=== PATIENT | male | born 2000 | race African-American/Black ===

== ENCOUNTER 2021-03-01 12:28 | Outpatient (CLI) | payer OTHER | END 2021-03-01 12:29 | disposition EMS.NT | LOC: EMS 12:28 | DX: R07.9 Chest pain, unspecified (principal); R05.9 Cough, unspecified ==

== ENCOUNTER 2021-03-01 13:22 | Emergency (ER) | payer OTHER ==
--- NOTE | 2021-03-01 13:56 | ED Physician Documentation ---
History of Present Illness - Stated complaint Stated Complaint: DIZZINESS - Chief complaint Chief Complaint: General - Additonal information Additional information: 20-year-old male presents emergency department for evaluation of generalized fatigue weakness dizziness and productive cough. Symptoms began on 20 February. His mom had tested positive for COVID-19. And he had visited her. He did have a PCR test on the which was negative. He is fully vaccinated though not boosted for COVID-19. Denies any pertinent past medical history. No tobacco or vape use denies alcohol. Review of Systems Constitutional: reports: Chills, Myalgias, Fatigue. denies: Fever Eyes: reports: Reviewed and negative Ears: reports: Reviewed and negative Nose: reports: Rhinorrhea / runny nose, Congestion Throat: reports: Dental pain / toothache Cardiac: denies: Chest pain / pressure, Palpitations, Pedal edema Respiratory: reports: Cough. denies: Dyspnea, Hemoptysis, Wheezing GI: reports: Diarrhea. denies: Abdominal Pain : reports: Reviewed and negative Skin: reports: Reviewed and negative Musculoskeletal: reports: Reviewed and negative Neurologic: reports: Generalized weakness PD PAST MEDICAL HISTORY - Present Medications Home Medications: Ambulatory Orders Medication Instructions Recorded Confirmed Albuterol Sulf [Ventolin Hfa 1 - 2 puffs INH Q4HR PRN #1 inhaler 03/01/21 Inhaler] Benzonatate [Tessalon] 200 mg PO TID PRN #20 cap 03/01/21 - Allergies Allergies/Adverse Reactions: Allergies Allergy/AdvReac Type Severity Reaction Status Date / Time No Known Drug Allergies Allergy Verified 03/01/21 13:42 PD ED PE NORMAL - General General: Alert and oriented X 3, No acute distress - HEENT HEENT: PERRL - Neck Neck: Supple, no meningeal sign, No adenopathy - Cardiac Cardiac: RRR, No murmur, No gallop - Respiratory Respiratory: No respiratory distress, Clear bilaterally - Abdomen Abdomen: Normal bowel sounds, Soft, Non tender - Back Back: No CVA TTP, No spinal TTP - Derm Derm: Normal color, Warm and dry, No rash - Extremities Extremities: No deformity, No tenderness to palpate, Normal ROM s pain - Neuro Neuro: Alert and oriented X 3, customer support associate 2-12 intact, No motor deficit Eye Opening: Spontaneous Motor: Obeys Commands Verbal: Oriented GCS Score: 15 Results - Vitals Vitals: Vital Signs - 24 hr 03/01/21 13:39 Temperature 37.2 C Heart Rate 74 Respiratory 23 Rate Blood Pressure 139/94 H O2 Saturation 100 Oxygen O2 Source Room air - Rads (name of study) CXR Radiology: Final report received (no acute cardiopulmonary process) PD MEDICAL DECISION MAKING - ED course Complexity details: reviewed results, re-evaluated patient, considered differential, d/w patient ED course: 20-year-old male presents emergency department for evaluation of just over 1 week productive cough weakness fatigue myalgias and chills. He also endorses some diarrhea. His mom was Covid positive during the holidays. He is vaccinated and tested negative on 21 February. His clinical exam is entirely unremarkable. Normal vitals without hypoxia. Unremarkable cardiopulmonary auscultation. No hypoxia. No abdominal tenderness elicited. Screening chest x-ray was without acute focal opacity. I suspect that he likely has a viral URI. We discussed routine care that would include hydration rest and as needed Motrin and Tylenol. I will prescribe a limited amount of Tessalon Perles as well as albuterol to machine adjuster helper in the cough. A Covid screen is pending on this gentleman and he is advised to remain in quarantine until the results are known. Departure - Departure Disposition: 01 Home, Self Care Clinical Impression: Cough, Encounter for screening for COVID-19 Upper respiratory infection Qualifiers: URI type: unspecified viral URI Qualified Code(s): J06.9 - Acute upper respiratory infection, unspecified Condition: Stable Record reviewed to determine appropriate education?: Yes Prescriptions: Albuterol Sulf [Ventolin Hfa Inhaler] 1 - 2 puffs INH Q4HR PRN #1 inhaler PRN Reason: Shortness Of Air/Wheezing Benzonatate [Tessalon] 200 mg PO TID PRN #20 cap PRN Reason: Cough Comments: Armond you were seen today in the emergency department for cough, congestion, fatigue and weakness as well as diarrhea after being exposed to COVID-19. A COVID-19 test is pending for you. You are advised to remain in quarantine until the test results are known which may take 3 to 4 days. Your chest x-ray is unremarkable. You do not have pneumonia. I am sending a prescription for some albuterol as [place] help reduce your cough. It is important that you stay well-hydrated. Drink lots of water. This will improve your weakness as well as your dizziness. We will notify you if the Covid test is positive. If at any point you feel that your symptoms are worsening, you have fainting episodes, fever higher than 103 or severe shortness of air then please return immediately to the ER for a second evaluation.
--- NOTE | 2021-03-01 14:05 | XRAY Report ---
PROCEDURE: Chest 1 View X-Ray INDICATIONS: chest pain TECHNIQUE: One view of the chest was acquired. COMPARISON: None FINDINGS: Surgical changes and devices: None. Lungs and pleura: No pleural effusions or pneumothorax. Lungs are clear. Mediastinum: Mediastinal contours appear normal. Heart size is normal. Bones and chest wall: No suspicious bony lesions. Overlying soft tissues appear unremarkable. IMPRESSION: No acute process. Reviewed by: Tomas Graves MD on 03/01/2021 2:04 PM PST Approved by: Tomas Graves MD on 03/01/2021 2:04 PM PST Station ID: [id number]
[2021-03-01 14:17] VITALS: BP 137/90
== END 2021-03-01 15:12 | disposition home or self-care (01) ==
LOC: ED 13:22
DX: U07.1 COVID-19 (principal)
CPT/HCPCS: 99283; 99284

== ENCOUNTER 2022-09-17 11:08 | Emergency (ER) | payer OTHER ==
[2022-09-17 11:55] LABS: BASOPHILS % (AUTO) 0.3 %; EOSINOPHILS # (AUTO) 0.1 10^3/uL (0.0-0.7); EOSINOPHILS % (AUTO) 0.8 %; HCT - HEMATOCRIT 47.8 % (42.0-52.0); HGB - HEMOGLOBIN 15.4 g/dL (14.0-18.0); LYMPHOCYTES # (AUTO) 1.2 10^3/uL (1.5-3.5); LYMPHOCYTES % (AUTO) 15.7 %; MEAN CORPUSCULAR HEMOGLOBIN 27.5 pg (27.0-31.0); MEAN CORPUSCULAR HGB CONC 32.2 g/dL (32.0-36.0); MEAN CORPUSCULAR VOLUME 85.5 fL (80.0-94.0); MEAN PLATELET VOLUME 10.5 fL (7.4-11.4); MONOCYTES # (AUTO) 0.8 10^3/uL (0.0-1.0); MONOCYTES % (AUTO) 10.2 %; NEUTROPHILS # (AUTO) 5.5 10^3/uL (1.5-6.6); NEUTROPHILS % (AUTO) 72.7 %; PLT - PLATELET COUNT 221 10^3/uL (130-450); RED BLOOD COUNT 5.59 10^6/uL (4.70-6.10); RED CELL DISTRIBUTION WIDTH 13.5 % (12.0-15.0); WHITE BLOOD COUNT 7.6 x10^3/uL (4.8-10.8)
[2022-09-17 12:03] LABS: ALBUMIN 4.7 g/dL (3.2-5.5); BILIRUBIN,TOTAL 0.7 mg/dL (0.2-1.0); CALCIUM 9.9 mg/dL (8.5-10.3); CREATININE 0.9 mg/dL (0.6-1.3); POTASSIUM 4.1 mmol/L (3.5-4.5)
--- NOTE | 2022-09-17 12:15 | ED Physician Documentation ---
PD HPI URI - Stated complaint Stated Complaint: CHEST PX,LT ARM TINGLING - Chief complaint Chief Complaint: Cardiac - History obtained from History obtained from: Patient - History of Present Illness Timing - onset: How many days ago (2) Timing duration: Days (2) Pain level max: 2 Pain level now: 1 Associated symptoms: Nasal congestion, Rhinorrhea, Sore throat, Dry cough. No: Dyspnea, NVD Recently seen: Not recently seen - Additional information Additional information: 21-year-old male active [employer] presents to the emergency department complaining of a sore throat, rhinorrhea, congestion and cough for the past 2 days. Today he felt like his chest was tight and his left arm was numb. Nothing seems to make it better or worse. No fevers. No recent antibiotics. No recent travel. No family history of young cardiac disease. No recent immobilization or surgery. No history of clotting disorders in the family. Review of Systems Constitutional: denies: Fever, Chills Skin: denies: Rash Musculoskeletal: denies: Neck pain, Back pain Neurologic: denies: Headache PD PAST MEDICAL HISTORY - Past Medical History Cardiovascular: None Respiratory: None Neuro: None Endocrine/Autoimmune: None GI: None : None HEENT: None Psych: None Musculoskeletal: None Derm: None - Past Surgical History Past Surgical History: No - Present Medications Home Medications: Ambulatory Orders Medication Instructions Recorded Confirmed No Known Home Medications 09/17/22 09/17/22 - Allergies Allergies/Adverse Reactions: Allergies Allergy/AdvReac Type Severity Reaction Status Date / Time No Known Drug Allergies Allergy Verified 03/01/21 13:42 - Social History Does the pt smoke?: No Smoking Status: Never smoker Does the pt drink ETOH?: No Does the pt have substance abuse?: No - Immunizations Immunizations are current?: Yes PD ED PE NORMAL - Vitals Vital signs reviewed: Yes - General General: Alert and oriented X 3, No acute distress - HEENT HEENT: PERRL, Ears normal, Moist mucous membranes, Pharynx benign - Neck Neck: Supple, no meningeal sign, No adenopathy - Cardiac Cardiac: RRR, Strong equal pulses - Respiratory Respiratory: No respiratory distress, Clear bilaterally, Other (no chest wall tenderness. no wheezing, no stridor) - Abdomen Abdomen: Soft, Non tender, Non distended - Derm Derm: Warm and dry, No rash - Extremities Extremities: No edema, No calf tenderness / cord - Neuro Neuro: Alert and oriented X 3 - Psych Psych: Normal mood, Normal affect Results - Vitals Vitals: Vital Signs - 24 hr 09/17/22 09/17/22 11:19 11:53 Temperature 36.7 C Heart Rate 54 L Respiratory 18 Rate Blood Pressure 141/72 H Blood Pressure 132/67 H [Right] O2 Saturation 98 Oxygen O2 Source Room air - EKG (time done) 1114 EKG releavant findings:: EKG personally interpreted by author of this note. Relevant findings are: Rate: Rate (enter#) (62) Rhythm: NSR Heath: Normal Intervals: Normal DC QRS: Normal Ischemia: ST elevation c/w repol - Labs Labs: Laboratory Tests 09/17/22 09/17/22 09/17/22 11:40 11:40 11:40 WBC 7.6 RBC 5.59 Hgb 15.4 Hct 47.8 MCV 85.5 MCH 27.5 MCHC 32.2 RDW 13.5 Plt Count 221 MPV 10.5 Neut # (Auto) 5.5 Lymph # (Auto) 1.2 L [place] # (Auto) 0.8 Eos # (Auto) 0.1 Baso # (Auto) 0.0 Absolute Nucleated RBC 0.00 Nucleated RBC % 0.0 Sodium 139 Potassium 4.1 Chloride 104 Carbon Dioxide 29 Anion Gap 6.0 BUN 12 Creatinine 0.9 Estimated GFR (MDRD) 129 Glucose 87 Calcium 9.9 Total Bilirubin 0.7 AST 27 ALT 24 Alkaline Phosphatase 54 Troponin I High Sens 4.8 Total Protein 7.0 Albumin 4.7 Globulin 2.3 Albumin/Globulin Ratio 2.0 Lipase 13 - Rads (name of study) cxr Relevant Findings:: Final report received, See rad report (NAD) PD Medical Decision Making - ED course Complexity details: reviewed results, re-evaluated patient, considered differential (No ST elevation IA, no aortic dissection, no PE, no tension pneumothorax, no aortic aneurysm), d/w patient ED course: Patient is very well-appearing, nontoxic. Afebrile. No hypoxia or respiratory distress. Lungs clear to auscultation bilaterally. Appears to have a viral upper respiratory infection. Can utilize Motrin and Tylenol as needed at home. We will have him follow-up with his PCP for further care. Patient counseled regarding signs and symptoms for which I believe and urgent re-evaluation would be necessary. Patient with good understanding of and agreement to plan and is comfortable going home at this time This document was made in part using voice recognition software. While efforts are made to proofread this document, sound alike and grammatical errors may occur. Departure - Departure Disposition: Home, Self Care Clinical Impression: Viral syndrome Condition: Good Instructions: ED Viral Syndrome Follow-Up: Your,doctor in 1 week [Other] Comments: Your EKG laboratory testing and x-ray do not show any acute abnormalities today. Please follow-up with your doctor for further care. You can use Motrin or Tylenol as needed for pain at home. Please return if you worsen. This appears to be a viral syndrome. Forms: PCP List
[2022-09-17 12:54] VITALS: BP 119/71
--- NOTE | 2022-09-17 13:32 | XRAY Report ---
PROCEDURE: Chest 1 View X-Ray INDICATIONS: Chest Pain TECHNIQUE: One view of the chest was acquired. COMPARISON: 03/01/2021. FINDINGS: Surgical changes and devices: None. Lungs and pleura: No pleural effusions or pneumothorax. Lungs are clear. Mediastinum: Mediastinal contours appear normal. Heart size is normal. Bones and chest wall: No suspicious bony lesions. Overlying soft tissues appear unremarkable. IMPRESSION: No acute cardiopulmonary process. Reviewed by: Ajit Farias MD on 09/17/2022 11:54 AM PDT Approved by: Ajit Farias MD on 09/17/2022 11:54 AM PDT Station ID: [id number]
== END 2022-09-17 12:53 | disposition home or self-care (01) ==
LOC: ED 11:08
DX: J06.9 Acute upper respiratory infection, unspecified (principal)
CPT/HCPCS: 36415; 80053; 83690; 84484; 85025; 93005; 99283; 99284

== ENCOUNTER 2023-04-03 09:02 | Outpatient (CLI) | payer OTHER | END 2023-04-03 09:03 | disposition critical access hospital (66) | LOC: EMS 09:02 | DX: R55 Syncope and collapse (principal); W18.30XA Fall on same level, unspecified, initial encounter; R11.2 Nausea with vomiting, unspecified; R07.9 Chest pain, unspecified | CPT/HCPCS: A0425; A0427 ==

== ENCOUNTER 2023-04-03 09:29 | Emergency (ER) | payer OTHER ==
[2023-04-03] MEDS: ONDANSETRON 4 MG/2 ML VIAL IVP STA (10:17)
[2023-04-03] MEDS: SODIUM CHLORIDE 0.9% 1,000 ML IV STA (10:17)
[2023-04-03 10:22] LABS: BASOPHILS % (AUTO) 0.3 %; EOSINOPHILS % (AUTO) 0.1 %; HCT - HEMATOCRIT 52.6 % (42.0-52.0); HGB - HEMOGLOBIN 16.7 g/dL (14.0-18.0); LYMPHOCYTES # (AUTO) 0.9 10^3/uL (1.5-3.5); LYMPHOCYTES % (AUTO) 12.4 %; MEAN CORPUSCULAR HEMOGLOBIN 27.5 pg (27.0-31.0); MEAN CORPUSCULAR HGB CONC 31.7 g/dL (32.0-36.0); MEAN CORPUSCULAR VOLUME 86.5 fL (80.0-94.0); MEAN PLATELET VOLUME 10.5 fL (7.4-11.4); MONOCYTES # (AUTO) 0.6 10^3/uL (0.0-1.0); MONOCYTES % (AUTO) 7.8 %; NEUTROPHILS % (AUTO) 79.1 %; PLT - PLATELET COUNT 222 10^3/uL (130-450); RED BLOOD COUNT 6.08 10^6/uL (4.70-6.10); RED CELL DISTRIBUTION WIDTH 13.3 % (12.0-15.0); WHITE BLOOD COUNT 7.6 x10^3/uL (4.8-10.8)
[2023-04-03 10:34] LABS: ALBUMIN 4.6 g/dL (3.2-5.5); ALBUMIN/GLOBULIN RATIO 1.9 (1.0-2.2); BILIRUBIN,TOTAL 0.7 mg/dL (0.2-1.0); CALCIUM 9.8 mg/dL (8.5-10.3); CREATININE 0.8 mg/dL (0.6-1.3); POTASSIUM 3.8 mmol/L (3.5-4.5)
[2023-04-03 11:05] VITALS: O2SAT 98
[2023-04-03 11:26] LABS: B. PARAPERTUSSIS- RESP PCR PAN NOT DETECTED; B. PERTUSSIS- RESP PCR PANEL NOT DETECTED; C. PNEUMONIAE- RESP PCR PANEL NOT DETECTED; CORONAVIRUS 229E-RESP PCR NOT DETECTED; CORONAVIRUS HKU1-RESP PCR NOT DETECTED; CORONAVIRUS NL63-RESP PCR NOT DETECTED; CORONAVIRUS OC43-RESP PCR NOT DETECTED; HUMAN METAPNEUMOVIRUS NOT DETECTED; INFLUENZA A- RESP PCR PANEL NOT DETECTED; INFLUENZA B - RESP PCR PANEL NOT DETECTED; M. PNEUMONIAE- RESP PCR PANEL NOT DETECTED; PARAINFLUENZA VIRUS 1 NOT DETECTED; PARAINFLUENZA VIRUS 2 NOT DETECTED; PARAINFLUENZA VIRUS 3 NOT DETECTED; PARAINFLUENZA VIRUS 4 NOT DETECTED; RHINOVIRUS/ENTEROVIRUS NOT DETECTED; RSV- RESP PCR PANEL NOT DETECTED; SARS-CoV-2 -RESP PCR PANEL NOT DETECTED
--- NOTE | 2023-04-03 11:38 | ED Physician Documentation ---
History of Present Illness - Stated complaint Stated Complaint: SYNCOPE - Chief complaint Chief Complaint: Neuro - History obtained from History obtained from: Patient - Additonal information Additional information: The patient comes to the emergency department chief complaint of nausea, vomiting, and diarrhea for the last couple of days with syncopal episode today. He states that 2 days ago, he began to get nauseated and vomited quite a bit. The diarrhea started later the same day and continued through yesterday and is continuing today. He states it is combination of watery output and just runny stool. He states that his nausea and vomiting have improved quite a bit, though he still does feel a little queasy if he puts anything in his stomach. Because of this, he has not been drinking much water. He states that today, after getting up to a standing position from a laying position, he suddenly felt very lightheaded and suddenly lost consciousness. He does not remember hitting the f karsten. He states that he came to and began to call 911 and was able to talk to the dispatcher on the phone but ended up having another syncopal episode while on the phone. He states that when he woke up, he found the medics standing over him. 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 The patient does not remember this at a ll. He states he is otherwise very healthy. He denies any fevers or chills. No specific sick contacts that he knows of. He has not noticed any blood in his vomitus or his stools. No particular abdominal pain, other than some periumbilical cramps when he is about to have diarrhea. PD PAST MEDICAL HISTORY - Past Medical History Past Medical History: Yes Cardiovascular: None Respiratory: None Neuro: None Endocrine/Autoimmune: None GI: None : None HEENT: None Psych: Depression Musculoskeletal: None Derm: None - Past Surgical History Past Surgical History: No - Present Medications Home Medications: Ambulatory Orders Medication Instructions Recorded Confirmed Ondansetron Odt [Zofran] 4 mg TL Q6H PRN #14 tablet 04/03/23 - Allergies Allergies/Adverse Reactions: Allergies Allergy/AdvReac Type Severity Reaction Status Date / Time No Known Drug Allergies Allergy Verified 04/03/23 09:45 - Social History Does the pt smoke?: No Smoking Status: Never smoker Does the pt drink ETOH?: No Does the pt have substance abuse?: No - Immunizations Immunizations are current?: Yes PD ED PE NORMAL - Vitals Vital signs reviewed: Yes - General General: Alert and oriented X 3, No acute distress, Well developed/nourished - HEENT HEENT: Atraumatic, PERRL, EOMI, Moist mucous membranes - Neck Neck: Supple, no meningeal sign - Cardiac Cardiac: RRR, No murmur - Respiratory Respiratory: No respiratory distress, Clear bilaterally - Abdomen Abdomen: Soft, Non tender, Non distended - Derm Derm: Normal color, Warm and dry, No rash - Extremities Extremities: No deformity, No edema - Neuro Neuro: Alert and oriented X 3, outside solar sales consultant 2-12 intact, Normal speech - Psych Psych: Normal mood, Normal affect Results - Vitals Vitals: Vital Signs - 24 hr 04/03/23 04/03/23 04/03/23 09:38 11:01 11:50 Temperature 36.7 C 36.7 C 36.5 C Heart Rate 90 85 88 Respiratory 23 18 18 Rate Blood Pressure 126/91 H 139/80 H 130/80 O2 Saturation 99 98 98 Oxygen O2 Source Room air - Labs Labs: Laboratory Tests 04/03/23 04/03/23 04/03/23 10:14 10:14 10:17 WBC 7.6 RBC 6.08 Hgb 16.7 Hct 52.6 H MCV 86.5 MCH 27.5 MCHC 31.7 L RDW 13.3 Plt Count 222 MPV 10.5 Neut # (Auto) 6.0 Lymph # (Auto) 0.9 L [place] # (Auto) 0.6 Eos # (Auto) 0.0 Baso # (Auto) 0.0 Absolute Nucleated RBC 0.00 Nucleated RBC % 0.0 Sodium 139 Potassium 3.8 Chloride 104 Carbon Dioxide 29 Anion Gap 6.0 BUN 13 Creatinine 0.8 Estimated GFR (MDRD) 147 Glucose 91 Calcium 9.8 Total Bilirubin 0.7 AST 16 ALT 26 Alkaline Phosphatase 54 Total Protein 7.0 Albumin 4.6 Globulin 2.4 Albumin/Globulin Ratio 1.9 Lipase 12 Nasal Adenovirus (PCR) NOT DETECTED Nasal B. parapertussis DNA (PCR) NOT DETECTED Nasal Coronavir 229E PCR NOT DETECTED Nasal Coronavir HKU1 PCR NOT DETECTED Nasal Coronavir NL63 PCR NOT DETECTED Nasal Coronavir OC43 PCR NOT DETECTED Nasal Enterovir/Rhinovir PCR NOT DETECTED Nasal Influenza B PCR NOT DETECTED Nasal Influenza A PCR NOT DETECTED Nasal Parainfluen 1 PCR NOT DETECTED Nasal Parainfluen 2 PCR NOT DETECTED Nasal Parainfluen 3 PCR NOT DETECTED Nasal Parainfluen 4 PCR NOT DETECTED Nasal RSV (PCR) NOT DETECTED Nasal B.pertussis DNA PCR NOT DETECTED Nasal C.pneumoniae (PCR) NOT DETECTED [place] Human Metapneumo PCR NOT DETECTED Nasal M.pneumoniae (PCR) NOT DETECTED Nasal SARS-CoV-2 (PCR) NOT DETECTED PD Medical Decision Making - ED course Complexity details: reviewed results, re-evaluated patient, considered differential, d/w patient ED course: The patient had received most of the liter fluid by the time he arrived in the emergency department with EMS and reported feeling quite a bit better. However, I did note that when I sat him up for the respiratory exam, his heart rate jumped from the 80s to the low 100s. As such, I felt he could use a second liter of IV fluids. He was also given a dose of Zofran and worked up with laboratory studies and respiratory PCR panel, all of which were unremarkable. The patient was feeling much better was able to ambulate without difficulty to the bathroom and back. I advised him that is very important that he gets plenty of fluids to drink at home, and his goal should be 8 to 10 cups of water per day. I have prescribed Zofran to help him feel little more settled in the stomach. We discussed the usual indications for return. Departure - Departure Disposition: 01 Home, Self Care Clinical Impression: Gastroenteritis, Dehydration Syncope Qualifiers: Syncope type: unspecified Qualified Code(s): R55 - Syncope and collapse Condition: Stable Instructions: ED Dehydration, ED Gastroenteritis Viral Prescriptions: Ondansetron Odt [Zofran] 4 mg TL Q6H PRN #14 tablet PRN Reason: Nausea / Vomiting Comments: Your labs look great and your viral panel is negative. Most likely have one of the many other viruses that we cannot test for that cause vomiting and diarrhea. It is not uncommon to become dehydrated when you are losing extra fluid and when it is difficult to drink the amount of fluid that you would normally drink. This combined with some delay in your cardiovascular system's response to positional change when you are sick can contribute to fainting. You were demonstrably dehydrated when you came to the emergency department, based on your heart rate changes when you change position and you have drastically improved with IV fluids. Please follow-up with your primary doctor as needed. We will send a prescription for nausea medicine to the [facility] pharmacy in [place]. Forms: PCP List Discharge Date/Time: 04/03/23 11:50
[2023-04-03 11:58] VITALS: BP 130/80
== END 2023-04-03 11:50 | disposition home or self-care (01) ==
LOC: EDUNIT# → ED 09:29
DX: K52.9 Noninfective gastroenteritis and colitis, unspecified (principal); E86.0 Dehydration; Z11.52 Encounter for screening for COVID-19
CPT/HCPCS: 36415; 80053; 83690; 85025; 87633; 93005; 96361; 96374; 99284